=== PATIENT | female | born 1950 | race Caucasian/White ===

== ENCOUNTER 2017-03-28 06:38 | Inpatient (IN) | payer MEDICARE, OTHER ==
[2017-03-28] VITALS (11 sets, daily range): BP systolic 117–157; BP diastolic 64–78
[~2017-03-28] VITALS: Ht 162.6 cm; Wt 47.6 kg
--- NOTE | 2017-03-28 06:38 | NUR ---
Pt brought in by family c/o diffuse abdominal pain since 2100 last night. Pt states she tried to vomit, with small amount of bile out. Small bowel movement last night. Pt gowned and placed on monitor. Awaiting MD evaluation.
--- NOTE | 2017-03-28 07:15 | NUR ---
RECEIVED REPORT FROM ANNIE BE FOR MONIQUE.
--- NOTE | 2017-03-28 07:23 | NUR ---
PATIENT TAKEN TO CT VIA STRETCHER.
--- NOTE | 2017-03-28 07:32 | NUR ---
PATIENT RETURNED FROM CT IN STABLE CONDITION.
[2017-03-28 07:37] LABS: ALBUMIN 4.2 g/dL (3.4-5.0); BILIRUBIN,DIRECT 0.1 mg/dL (0.0-0.2); BILIRUBIN,TOTAL 0.9 mg/dL (0.2-1.0); CALCIUM, SERUM 9.6 mg/dL (8.5-10.1); CREATININE 0.8 mg/dL (0.6-1.3); POTASSIUM 4.3 mmol/L (3.5-5.1); TOTAL PROTEIN, SERUM 7.2 g/dL (6.4-8.2)
[2017-03-28 07:42] LABS: HEMATOCRIT 48 % (33-45); HEMOGLOBIN 15.8 g/dL (11.5-14.8); MEAN CORPUSCULAR HEMOGLOBIN 31 PG (26.0-33.0); MEAN CORPUSCULAR HGB CONC 33 g/dl (31.0-36.0); MEAN CORPUSCULAR VOLUME 92 fL (82-100); PLATELET COUNT (AUTO) 336 /CMM (150-450); RDW COEFFICIENT OF VARIATION 12.3 (11.5-15.0); RED BLOOD CELL COUNT(AUTO) 5.18 MIL/uL (4.0-5.2); WHITE BLOOD COUNT (AUTO) 17.7 K/uL (4.3-11.0)
--- NOTE | 2017-03-28 07:47 | NUR ---
CALLED SURGERY DR. FUENTES [phone]
--- NOTE | 2017-03-28 07:56 | NUR ---
PAGED [address] PRESS SERVICE READER FOR ADMISSION
[2017-03-28] MEDS ORDERED: LEVO175T7 PO (08:09)
[2017-03-28] MEDS ORDERED: PRED1TAB PO (08:09)
[2017-03-28] MEDS ORDERED: CEPH-569 PO (08:09)
[2017-03-28] MEDS ORDERED: ALPR0.25 PO (08:09)
[2017-03-28] MEDS ORDERED: ESCI5TAB PO (08:09)
[2017-03-28 08:15] LABS: BAND % (MANUAL) 2 % (0.0-5.0); LYMPHOCYTES % (MANUAL) 9 % (16-48); MONOCYTES % (MANUAL) 6 % (0-11.0); NEUTROPHILS % (MANUAL) 85 (42-76)
--- NOTE | 2017-03-28 08:23 | NUR ---
REPORT GIVEN TO RNLEIGH ANN FOR ADMISSION.
[2017-03-28 08:50] LABS: APPEARANCE,URINE CLEAR (CLEAR); BILIRUBIN,URINE NEGATIVE (NEGATIVE); BLOOD, URINE NEGATIVE Ery/uL (NEGATIVE); COLOR,URINE YELLOW (YELLOW); KETONES,URINE NEGATIVE (NEGATIVE); LEUKOCYTE ESTERASE ,URINE NEGATIVE (NEGATIVE); NITRITE, URINE NEGATIVE (NEGATIVE); PH,URINE 8.5 (5.0-8.0); PROTEIN,URINE NEGATIVE (NEGATIVE); UGLUCOSE NEGATIVE (NEGATIVE); UROBILINOGEN,URINE 0.2 EU/dL (0.2)
--- NOTE | 2017-03-28 09:29 | NUR ---
PATIENT TRANSFERRED TO FLOOR VIA WHEELCHAIR WITH EMT. RN, LEIGH ANN TO PROVIDE MONIQUE.
--- NOTE | 2017-03-28 09:35 | NUR ---
SHAR FARIAS RN:ADMISSION NOTE RECEIVED PT TRANSFERRED FROM ER WITH DIAGNOSIS OF SMALL BOWL OBSTRUCTION. CAME IN TO ER WITH ABDOMINAL PAIN. HX OF SKIN HYPOTHY, HYPOTHYROID, COPD. AND COLECTOMY. A/OX4. NO DISTRESS. PAIN CONTROLLED WITH PAIN MANAGEMENT. NO SOB NOTED. IV #22 ON RIGHT AC. PATENT. NO REDNESS. NO INFILTRATION NOTED. ORDERED TO START NS AT 75ML/HR. PT NPO DUE TO SCHEDULE FOR EXPLORATORY LAPAROSCOPY WITH POSSIBLE BOWL RESECTION. SKIN INTACT. PT RESTING COMFORTABLY IN BED. CALL LIGHT WITHIN REACH.
--- NOTE | 2017-03-28 11:58 | NUR ---
SHAR FARIAS RN: NOTES PT TRANSFERRED DOWN TO OR FOR SURGERY. ALL MEDICATIONS GIVEN ON TIME. NO ADVERSE RATIONS NOTED. CONSENTS SIGNED.
[2017-03-28 12:36] LABS: PROTHROMBIN TIME 10.7 SECS (9.5-12.7)
--- NOTE | 2017-03-28 14:30 | NUR ---
MED SURGE RN: POST OP NOTE PT RETURNED TO MED SURGE STATUS POST EXPLORATORY LAPAROSTOMY. TRANSVERSE INCISION ON LEFT LOWER ABDOMEN. DRESSING INTACT. NO BLEEDING NOTED. RUNNING LR AT 100ML/HR ON IV SITE R AC. SITE CLEAR. PATENT. PAIN MANAGEMENT CONTROLLED. NO DISTRESS. NO SOB NOTED. VS STABLE UPON ARRIVAL. BP 153/70, PULSE 87, RR18, 02 98% ON ROOM AIR. ALL NEW ORDERS PLACED. CAN START ON CLEAR LIQUID DIET. INCREASE BY TOMORROW TO REGULAR DIET TOLERATED. AMBULATION TOLERATED. MORNING LABS ORDERED. RESTING COMFORTABLY IN BED. CALL LIGHT WITHIN REACH. WILL CONTINUE TO MONITOR.
--- NOTE | 2017-03-28 16:59 | NUR ---
SHAR FARIAS RN: DISCHARGE NOTES PT D/C TO [facility] FOR FURTHER CARE. A/O X1. NO SOB. ON 2L NC SATING AT 94%. NO DISTRESS NOTED. ALL MEDICATIONS ADMINISTERED BEFORE LEAVING. IV SITE ON LEFT WRIST D/C. NO INFILTRATION. NO REDNESS. NO BLEEDING NOTED. PAIN CONTROLLED WITH PAIN MANAGEMENT. ALL DISCHARGE PAPERS SIGNED WITH TWO NURSES DUE TO INABILITY OF PATIENT TO DO SO. TRANSPORTED BY TWO EMT. REPORT GIVEN TO [place] AT [facility]. ALL BELONGINGS ACCOUNTED FOR. COPIES OF D/C INFORMATION SENT TO [facility]. DAUGHTER JUDITH NOTIFIED. . Addendum: 03/28/17 at 1706 by KIMBERLY SPENCE RN DISREGARD NOTE. WRONG PATIENT .
--- NOTE | 2017-03-28 18:40 | NUR ---
MED SURGE RN: CLOSING NOTE PT A/O X4. STATUS POST EXPLORATORY LAPAROSTOMY. TRANSVERSE INCISION ON LEFT SIDE OF ABDOMEN. TOOK ALL MEDICATIONS ON TIME. NO ADVERSE REACTIONS NOTED. PAIN CONTROLLED WITH PAIN MEDICATION. DRESSING INTACT. NO BLEEDING NOTED ON DRESSING. IV RUNNING LR AT 100/ML ON R AC. SITE CLEAR. PATENT, NO REDNESS, NO INFILTRATION NOTED. FOLY CATH IN PLACE. OUTPUT 350. D/C FOLY CATH ON 03/29/17 PER MD ORDER. ON CLEAR LIQUID DIET. TOLERATED WELL. NO N/V NOTED. CAN CHANGE TO REGULAR DIET BY 03/29/17 IF CONTINUES TO TOLERATE INTAKE. RESTING COMFORTABLY IN BED. CALL LIGHT WITHIN REACH.
--- NOTE | 2017-03-28 19:30 | NUR ---
MS/RN RECEIVE PATIENT AWAKE, ALERT, ORIENTED, S/P EXPLORATORY LAPAROTOMY, DRESSING IN MID LOWER ABDOMEN CLEAN AND INTACT, PAIN LEVEL 6/10 BUT STATES SHE CAN WAIT UNTIL THE NEXT PAIN MED DUE AT 2000H, NO DISTRESS NOTED. PLAN OF CARE DISCUSSED, VERBALIZED UNDERSTANDING. WILL MONITOR.
--- NOTE | 2017-03-28 22:00 | NUR ---
MS/RN PATIENT IS SLEEPING AT THIS TIME, AROUSABLE, APPEAR COMFORTABLE, NO SIGNS OF DISTRESS NOTED, CALL LIGHT IN REACH. WILL CONTINUE TO MONITOR.
--- NOTE | 2017-03-29 06:02 | NUR ---
MS/RN PATIENT AWAKE, ALERT, ORIENTED. PER PATIENT SHE IS STILL HAS NAUSEA AND PAIN. INSTRUCTED PATIENT NOT TO EAT AND DRINK UNTIL SEEN BY HER DOCTOR TODAY. VERBALIZED UNDERSTANDING. WILL CONTINUE TO MONITOR.
--- NOTE | 2017-03-29 07:30 | NUR ---
RN OPENING NOTES RECEIVED PT. A&OX4. BREATHING UNLABORED ON OXYGEN AT 2L/MIN, AND NO SOB. PT. C/O ABDOMINLA PAIN 04/19, WAS OFFERED PAIN MEDICATIONS. IV FLUIDS RUNNING AT 100 ML/HR. REA CATHETER HAS CLEAR AND YELLOW URINE 900 CC OUTPUT. BED IS IN LOW POSITION, 2 SIDE RAILS UP, AND INSTRUCTED PT.TO USE CALL LIGHT FOR ASSISTANCE.
--- NOTE | 2017-03-29 08:06 | NUR ---
RN NOTES MEDICATIONS SYNTHROID PO WAS NOT ADMINISTERED DUE TO PT. C/O ABDOMINAL PAIN AND NAUSEA WITH CLEAR LIQUID INTAKE.
[2017-03-29 08:11] VITALS: BP 149/89
--- NOTE | 2017-03-29 10:49 | NUR ---
PT. WAS SEEN AND EXAMINED BY FLORENTIN VICTOR NP. PT. AGREED TO HAVING LABS TAKEN.
[2017-03-29 11:09] LABS: BASOPHILS % (AUTO) 0.1 % (0.0-2.0); EOSINOPHILS # (AUTO) 0.1 /CMM (0.0-0.7); EOSINOPHILS % (AUTO) 0.6 % (0.0-6.0); HEMATOCRIT 44 % (33-45); HEMOGLOBIN 14.5 g/dL (11.5-14.8); LYMPHOCYTES # (AUTO) 2.1 /CMM (0.8-4.8); LYMPHOCYTES % (AUTO) 12.2 % (20.0-44.0); MEAN CORPUSCULAR HEMOGLOBIN 31 PG (26.0-33.0); MEAN CORPUSCULAR HGB CONC 33 g/dl (31.0-36.0); MEAN CORPUSCULAR VOLUME 93 fL (82-100); MONOCYTES # (AUTO) 0.6 /CMM (0.1-1.30); MONOCYTES % (AUTO) 3.7 % (2.0-12.0); NEUTROPHILS # (AUTO) 14.2 /CMM (1.8-8.9); NEUTROPHILS % (AUTO) 83.4 % (43.0-81.0); PLATELET COUNT (AUTO) 254 /CMM (150-450); RDW COEFFICIENT OF VARIATION 12.5 (11.5-15.0); RED BLOOD CELL COUNT(AUTO) 4.75 MIL/uL (4.0-5.2)
--- NOTE | 2017-03-29 11:16 | NUR ---
RN NOTES PT. HAD RECEIVED DIETARY CONSULT.
[2017-03-29 11:28] LABS: CALCIUM, SERUM 7.9 mg/dL (8.5-10.1); CARBON DIOXIDE 29 mmol/L (21-32); CHLORIDE 106 mmol/L (98-107); CREATININE 0.6 mg/dL (0.6-1.3); GLUCOSE 114 mg/dL (74-106); MAGNESIUM 1.9 mg/dL (1.8-2.4); PHOSPHORUS 3.7 mg/dL (2.5-4.9); POTASSIUM 3.4 mmol/L (3.5-5.1); SODIUM SERUM 143 mmol/L (136-145); UREA NITROGEN, BLOOD 6 mg/dL (7-18)
[2017-03-29 11:46] LABS: CHOLESTEROL 175 mg/dL (<200); HDL CHOLESTEROL 100 mg/dL (40-60); LDL 68 mg/dL (0-99); THYROID STIMULATING HORMONE < 0.007 uIU/mL (0.358-3.74); TRIGLYCERIDES 90 mg/dL (30-150)
[2017-03-29 13:38] VITALS: BP 147/77
[2017-03-29 16:00] VITALS: BP 149/89
--- NOTE | 2017-03-29 17:04 | NUR ---
RN NOTES REA REMOVED WITHOUT COMPLICATIONS. CLEAR AND YELLOW URINE OUTPUT 200CC.
[2017-03-29 20:00] VITALS: BP 134/72
--- NOTE | 2017-03-29 20:00 | NUR ---
RN NOTES POST CATHETER REMOVAL PT. HAD 200CC OF CLEAR AND YELLOW URINE OUTPUT.
--- NOTE | 2017-03-29 20:01 | NUR ---
RN CLOSING NOTES PT. IS IN BED A&OX4. BREATHING ON OXYGEN 2L/MIN WITH NASAL CANNULA, AND NO SOB. PT. HAS INTACT IV ACCESS ON LEFT ANTECUBITAL SITE. PT. C/O PAIN, ENDORSED FELT HAT INSPECTOR AND PACKER PUMP TO NURSE. BED IS IN LOW POSITION, 2 SIDE RAILS UP, AND CALL LIGHT WITHIN REACH.
--- NOTE | 2017-03-29 20:30 | NUR ---
MS/RN PATIENT AWAKE ALERT, ORIENTED, PAIN LEVEL 9/10, (WILL START COMPUTER NETWORKING INSTRUCTOR ADJUNCT ORDERED), NO DISTRESS NOTED, CALL LIGHT IN REACH. WILL MONITOR.
--- NOTE | 2017-03-29 20:52 | NUR ---
MS/RN [place] TOWER LOADER STARTED ORDERED. WILL MONITOR PATIENT PER PROTOCOL.
--- NOTE | 2017-03-29 23:22 | NUR ---
MS/RN PATIENT IS SLEEPING AT THIS TIME, AROUSABLE, APPEAR COMFORTABLE, NO SIGNS OF DISTRESS NOTED, ON CONTINUOUS PULSE OXIMETRY WITH 97% O2 SAT READING. WILL CONTINUE TO MONITOR.
--- NOTE | 2017-03-30 04:00 | NUR ---
MS/RN PATIENT SAID SHE IS NO LONGER IN PAIN. PATIENT REFUSED WAREHOUSE LABORER.
--- NOTE | 2017-03-30 06:20 | NUR ---
MS/RN PATIENT IS AWAKE, ALERT, ORIENTED, NO C/O PAIN, ALL NEEDS ATTENDED AT THIS TIME. WILL CONTINUE TO MONITOR.
[2017-03-30 07:12] LABS: EOSINOPHILS # (AUTO) 0.2 /CMM (0.0-0.7); EOSINOPHILS % (AUTO) 0.8 % (0.0-6.0); HEMATOCRIT 47 % (33-45); HEMOGLOBIN 15.6 g/dL (11.5-14.8); LYMPHOCYTES # (AUTO) 1.4 /CMM (0.8-4.8); LYMPHOCYTES % (AUTO) 7.2 % (20.0-44.0); MEAN CORPUSCULAR HEMOGLOBIN 31 PG (26.0-33.0); MEAN CORPUSCULAR HGB CONC 33 g/dl (31.0-36.0); MEAN CORPUSCULAR VOLUME 92 fL (82-100); MONOCYTES # (AUTO) 0.9 /CMM (0.1-1.30); MONOCYTES % (AUTO) 4.4 % (2.0-12.0); NEUTROPHILS # (AUTO) 17.5 /CMM (1.8-8.9); NEUTROPHILS % (AUTO) 87.6 % (43.0-81.0); PLATELET COUNT (AUTO) 256 /CMM (150-450); RDW COEFFICIENT OF VARIATION 11.8 (11.5-15.0); RED BLOOD CELL COUNT(AUTO) 5.09 MIL/uL (4.0-5.2)
[2017-03-30 07:43] LABS: CALCIUM, SERUM 8.4 mg/dL (8.5-10.1); POTASSIUM 3.8 mmol/L (3.5-5.1)
[2017-03-30 07:49] LABS: CREATININE 0.6 mg/dL (0.6-1.3)
--- NOTE | 2017-03-30 07:50 | NUR ---
MS RN OPENING NOTE PATIENT IS ALERT AND ORIENTED x4. NO PAIN AT THIS TIME. NO SOB OR DISTRESS NOTED. CALL LIGHT WITHIN REACH. SAFETY MEASURES IMPLEMENTED. ABLE TO COMMUNICATE NEEDS. S/P EXPLORE LAP, LYSIS OF ADHESION, RELEASE OF SBO. NO NAUSEA/VOMITING/DIARRHEA NOTED. TOLERATING CLEAR LIQUIDS WELL. AMBULATORY WITH BRP. IV INTACT AND PATENT NO REDNESS OR SWELLING NOTED, FLUSHES WELL. PATIENT REFUSING BLOOD BANK SPECIALIST PUMP AT THIS TIME. POSSIBLE DISCHARGE TODAY, WILL FOLLOW UP WITH MD. WILL CONTINUE TO MONITOR
[2017-03-30 08:00] VITALS: BP 152/77
[2017-03-30 09:04] LABS: LYMPHOCYTES % (MANUAL) 6 % (16-48); MONOCYTES % (MANUAL) 7 % (0-11.0); NEUTROPHILS % (MANUAL) 87 (42-76)
--- NOTE | 2017-03-30 11:52 | NUR ---
MS WATCH DIAL PRINTER NOTE PATIENT IS ALERT AND ORIENTED x4. NO PAIN AT THIS TIME. NO SOB OR DISTRESS NOTED. ALL DUE MEDICATIONS GIVEN ORDERED. ALL BELONGINGS WITH PATIENT AND . ALL DISCHARGE INSTRUCTIONS GIVEN TO PATIENT, TEACH BACK RECEIVED BY PATIENT. LEAVING VIA PRIVATE CAR WITH . PATIENT LEFT AGAINST MEDICAL ADVICE, EDUCATED PATIENT ON RISKS AND BENEFITS OF LEAVING AGAINST MEDICAL ADVICE. PATIENT STILL DECIDED ON AMA. MD AWARE AND INFORMED. IV REMOVED, SKIN INTACT. Addendum: 03/30/17 at 1203 by ISHA SWEET RN [id number] INCIDENT REPORT
== END 2017-03-30 11:50 | disposition left against medical advice (07) | DRG 335 ==
LOC: ER 06:38 → MED 09:12
PROVIDERS: ADMIT Nurse Practitioner Acute Care; ATTEND Nurse Practitioner Acute Care
PROC: 0DN84ZZ Release Small Intestine, Percutaneous Endoscopic Approach (ICD-10-PCS; principal; 2017-03-28 11:00)
DX: K56.60 Unspecified intestinal obstruction (principal); A41.9 Sepsis, unspecified organism; D72.829 Elevated white blood cell count, unspecified; E03.9 Hypothyroidism, unspecified; F41.9 Anxiety disorder, unspecified; E87.6 Hypokalemia; Z85.820 Personal history of malignant melanoma of skin; Z90.49 Acquired absence of other specified parts of digestive tract
CPT/HCPCS: 36415; 71010-TC; 71250-TC; 80048-TC; 80061-TC; 80076-TC; 81000-TC; 83690-TC; 83735-TC; 84100-TC; 84443-TC; 85025-TC; 85610-TC; 86850-TC; 86921-TC; 87081-TC; A4216; A4606; A6402; J0330; J0690; J1170; J1720; J1885; J2250; J2270; J2405; J2543; J2710; J2765; J3010; J3490; J7030; J7040; J7060; J7120; Z7610